=== PATIENT | female | born 1940 | race Caucasian/White ===

== ENCOUNTER → 2018-01-22 08:03 | Outpatient (CLI) | payer OTHER, SELFPAY ==
[2018-01-22 08:31] LABS: Add Manual Diff / Slide Review NO; Basophils Percent Auto 0.4 % (0-2); Eosinophils Percent Auto 0.1 % (2-4); Hematocrit 36.8 % (36-46); Hemoglobin 11.9 g/dL (12.0-16.0); Mean Corpuscular HGB Conc 32.3 % (30-36); Mean Corpuscular Hemoglobin 27.4 PG (26-34); Mean Corpuscular Volume 84.8 fL (80-100); Monocytes Percent Auto 3.4 % (3-14); Neutrophils Absolute Auto 10500 /uL (3000-5900); Neutrophils Percent Auto 74.1 % (50-75); Platelet Count 351 X10^3/uL (150-400); Red Blood Cell Count 4.34 X10^6/uL (4.0-5.2); Red Cell Distribution Width 16.2 % (11.6-14.8); White Blood Cell Count 14.1 X10^3/uL (4.5-11.0)
[2018-01-22 09:10] LABS: Alanine Aminotransferase 21 IU/L (9-52); Albumin 4.1 g/dL (3.5-5.0); Albumin Globulin Ratio 1.2 (1.0-2.8); Alkaline Phosphatase 54 U/L (38-126); Aspartate Aminotransferase 20 IU/L (14-36); BUN Creatinine Ratio 25.5 (6-22); Bilirubin Total 0.3 mg/dL (0.2-1.3); Creatinine Urine Random 97.7 mg/dL; Estimated Glomerular Filt Rate 48.2 mL/min (>60); Globulin 3.4 g/dL (1.7-4.1); Glucose 162 mg/dL (80-110); HEMOLYSIS < 15 (0-50); Potassium 4.1 mmol/L (3.4-5.1); Sodium 141 mmol/L (137-145); Total Protein 7.5 g/dL (6.3-8.2)
[2018-01-22 09:15] LABS: Microalbumi Creatinin Ratio Ur 25.5 ug/mg CR (<30); Microalbumin Urine Random 2.5 mg/dL (0-1.6)
[2018-01-23 07:42] LABS: HEMOLYSIS < 15 (0-50); Iron 92 ug/dL (37-170)
[2018-01-23 07:52] LABS: Percent Iron Saturation 27 % (15-50); Total Iron Binding Capacity 343 ug/mL (265-497); Transferrin 264 mg/dL (206-381)
[2018-01-23 08:18] LABS: Ferritin 11.9 ng/mL (11.1-264)
[2018-01-25 01:47] LABS: Hemoglobin A1C% w Est Avg Glu 6.4 % (4.0-6.0)
[2018-01-26 13:03] LABS: Parathyroid Hormone Int 34 pg/mL (14-64)
== END ==
PROVIDERS: Family Provider Family Medicine; PCP Family Medicine; Visit Provider Student in an Organized Health Care Education/Training Program
DX: E11.9 Type 2 diabetes mellitus without complications (principal); D50.9 Iron deficiency anemia, unspecified; N05.9 Unspecified nephritic syndrome with unspecified morphologic changes; D50.0 Iron deficiency anemia secondary to blood loss (chronic); D64.9 Anemia, unspecified; N25.81 Secondary hyperparathyroidism of renal origin; R80.9 Proteinuria, unspecified
CPT/HCPCS: 36415; 80053; 82043; 82570; 82728; 83036; 83540; 83550; 83970; 84443; 85025

== ENCOUNTER → 2018-07-12 09:26 | Outpatient (CLI) | payer OTHER, SELFPAY ==
[2018-07-12 10:11] LABS: Hematocrit 37.5 % (36-46); Hemoglobin 12.1 g/dL (12.0-16.0)
[2018-07-12 10:50] LABS: BUN Creatinine Ratio 13.3 (6-22); Blood Urea Nitrogen 16 mg/dL (7-17); Calcium 8.4 mg/dL (8.4-10.2); Carbon Dioxide 26 mmol/L (22-32); Chloride 101 mmol/L (98-107); Estimated Glomerular Filt Rate 43.6 mL/min (>60); Glucose 153 mg/dL (80-110); HEMOLYSIS < 15 (0-50); Potassium 3.9 mmol/L (3.4-5.1); Sodium 143 mmol/L (137-145)
[2018-07-12 10:53] LABS: HEMOLYSIS < 15 (0-50); Iron 29 ug/dL (37-170)
[2018-07-12 10:59] LABS: Creatinine Urine Random 181.9 mg/dL; Protein (Total) Urine Random 7 mg/dL (0-12); Protein Creatinine Ratio Urine 0.03 GRAM/24H
[2018-07-12 11:04] LABS: Percent Iron Saturation 11 % (15-50); Total Iron Binding Capacity 264 ug/dL (265-497); Transferrin 208 mg/dL (206-381)
[2018-07-12 11:15] LABS: Ferritin 26.8 ng/mL (11.1-264)
[2018-07-14 14:59] LABS: Parathyroid Hormone Int 28 pg/mL (14-64)
== END ==
PROVIDERS: Family Provider Family Medicine; PCP Family Medicine; Visit Provider Student in an Organized Health Care Education/Training Program
DX: N05.9 Unspecified nephritic syndrome with unspecified morphologic changes (principal); D50.0 Iron deficiency anemia secondary to blood loss (chronic); D64.9 Anemia, unspecified; N25.81 Secondary hyperparathyroidism of renal origin; R80.9 Proteinuria, unspecified
CPT/HCPCS: 36415; 80048; 82570; 82728; 83540; 83550; 83970; 84156; 85014; 85018

== ENCOUNTER → 2018-11-17 09:32 | Outpatient (CLI) | payer OTHER, SELFPAY | PROVIDERS: PCP Student in an Organized Health Care Education/Training Program; Visit Provider Student in an Organized Health Care Education/Training Program | DX: Z13.820 Encounter for screening for osteoporosis (principal); Z78.0 Asymptomatic menopausal state; E11.9 Type 2 diabetes mellitus without complications; Z91.89 Other specified personal risk factors, not elsewhere classified; Z87.891 Personal history of nicotine dependence | CPT/HCPCS: 77080 ==

== ENCOUNTER → 2018-12-30 08:18 | Outpatient (CLI) | payer OTHER, SELFPAY ==
[2018-12-30 08:55] LABS: Hematocrit 36.5 % (36-46); Hemoglobin 11.5 g/dL (12.0-16.0)
[2018-12-30 09:13] LABS: HEMOLYSIS < 15 (0-50)
[2018-12-30 09:22] LABS: BUN Creatinine Ratio 20.8 (6-22); Blood Urea Nitrogen 27 mg/dL (7-17); Calcium 8.1 mg/dL (8.4-10.2); Carbon Dioxide 29 mmol/L (22-32); Chloride 99 mmol/L (98-107); Estimated Glomerular Filt Rate 39.6 mL/min (>60); Glucose 140 mg/dL (80-110); Potassium 3.8 mmol/L (3.4-5.1); Sodium 141 mmol/L (137-145)
[2018-12-30 09:54] LABS: HEMOLYSIS < 15 (0-50); Iron 38 ug/dL (37-170)
[2018-12-30 09:57] LABS: Ferritin 21.5 ng/mL (11.1-264)
[2018-12-30 10:04] LABS: Percent Iron Saturation 12 % (15-50); Total Iron Binding Capacity 312 ug/dL (265-497); Transferrin 239 mg/dL (206-381)
[2018-12-30 10:05] LABS: Creatinine Urine Random 109.6 mg/dL
[2018-12-30 10:08] LABS: Protein (Total) Urine Random < 5 mg/dL (0-12); Protein Creatinine Ratio Urine 0.04 GRAM/24H
[2019-01-03 14:53] LABS: Parathyroid Hormone Int 41 pg/mL (14-64)
== END ==
PROVIDERS: PCP Student in an Organized Health Care Education/Training Program; Visit Provider Student in an Organized Health Care Education/Training Program
DX: R80.9 Proteinuria, unspecified (principal); N05.9 Unspecified nephritic syndrome with unspecified morphologic changes; D50.0 Iron deficiency anemia secondary to blood loss (chronic); D64.9 Anemia, unspecified; N25.81 Secondary hyperparathyroidism of renal origin
CPT/HCPCS: 36415; 80048; 82570; 82728; 83540; 83550; 83970; 84156; 85014; 85018

== ENCOUNTER → 2019-05-23 07:44 | Outpatient (CLI) | payer OTHER, SELFPAY ==
[2019-05-23 08:26] LABS: Hematocrit 36.4 % (36-46); Hemoglobin 11.6 g/dL (12.0-16.0); Mean Corpuscular HGB Conc 31.8 % (30-36); Mean Corpuscular Hemoglobin 27.8 PG (26-34); Mean Corpuscular Volume 87.5 fL (80-100); Platelet Count 357 X10^3/uL (150-400); Red Blood Cell Count 4.16 X10^6/uL (4.0-5.2); Red Cell Distribution Width 16.4 % (11.6-14.8); White Blood Cell Count 10.6 X10^3/uL (4.5-11.0)
[2019-05-23 08:42] LABS: HEMOLYSIS < 15 (0-50); Iron 42 ug/dL (37-170)
[2019-05-23 08:48] LABS: Hemoglobin A1C% w Est Avg Glu 5.9 % (4.0-6.0)
[2019-05-23 08:53] LABS: BUN Creatinine Ratio 16.7 (6-22); Blood Urea Nitrogen 20 mg/dL (7-17); Calcium 8.4 mg/dL (8.4-10.2); Carbon Dioxide 28 mmol/L (22-32); Chloride 102 mmol/L (98-107); Estimated Glomerular Filt Rate 43.4 mL/min (>60); Glucose 120 mg/dL (80-110); HEMOLYSIS < 15 (0-50); Percent Iron Saturation 13 % (15-50); Potassium 4.1 mmol/L (3.4-5.1); Sodium 143 mmol/L (137-145); Total Iron Binding Capacity 333 ug/dL (265-497); Transferrin 270 mg/dL (206-381)
== END ==
PROVIDERS: PCP Student in an Organized Health Care Education/Training Program; Visit Provider Student in an Organized Health Care Education/Training Program
DX: D50.9 Iron deficiency anemia, unspecified (principal); E11.9 Type 2 diabetes mellitus without complications
CPT/HCPCS: 36415; 80048; 83036; 83540; 83550; 85027

== ENCOUNTER → 2019-07-13 12:58 | Outpatient (CLI) | payer OTHER, SELFPAY ==
[2019-07-13 13:34] LABS: Hematocrit 35.7 % (36-46); Hemoglobin 11.5 g/dL (12.0-16.0)
[2019-07-13 14:23] LABS: BUN Creatinine Ratio 15.4 (6-22); Blood Urea Nitrogen 20 mg/dL (7-17); Calcium 8.2 mg/dL (8.4-10.2); Carbon Dioxide 28 mmol/L (22-32); Chloride 103 mmol/L (98-107); Estimated Glomerular Filt Rate 39.6 mL/min (>60); Glucose 161 mg/dL (80-110); HEMOLYSIS < 15 (0-50); Sodium 143 mmol/L (137-145)
[2019-07-13 15:55] LABS: Creatinine Urine Random 171.4 mg/dL; Protein (Total) Urine Random 9 mg/dL (0-12); Protein Creatinine Ratio Urine 0.05 GRAM/24H
[2019-07-15 15:09] LABS: Parathyroid Hormone Int 20 pg/mL (14-64)
== END ==
PROVIDERS: PCP Student in an Organized Health Care Education/Training Program; Visit Provider Student in an Organized Health Care Education/Training Program
DX: N05.9 Unspecified nephritic syndrome with unspecified morphologic changes (principal); R80.9 Proteinuria, unspecified; D64.9 Anemia, unspecified; N25.81 Secondary hyperparathyroidism of renal origin
CPT/HCPCS: 36415; 80048; 82570; 83970; 84156; 85014; 85018

== ENCOUNTER → 2019-07-13 13:51 | Outpatient (CLI) | payer OTHER, SELFPAY ==
--- NOTE | 2019-07-13 13:55 | DI.RAD.S_ITS ---
PROCEDURE: XR KNEE RT 1TO2V INDICATIONS: right Knee pain. Patellar mass TECHNIQUE: 3 views of the knee were acquired. COMPARISON: [facility] [place], CR, XR KNEE BILATERAL STANDING UP, 01/06/2017, 15:26. [facility], CR, KNEE 3V LEFT, 12/25/2016, 15:22. FINDINGS: Bones: No acute fractures or dislocations. Old patellar fracture with internal fixation. No suspicious bony lesions. Chondrocalcinosis. 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 Soft tissues: No joint effusion. No suspicious soft tissue calcifications. IMPRESSION: 1. Old patellar fracture with internal fixation. 2. Mild degenerative tendon sheath. 3. Chondrocalcinosis. Differential diagnoses include CPPD and hyperparathyroidism. Dictated by: Mackenzie Griffiths M.D. on 07/13/2019 at 15:38 Approved by: Mackenzie Griffiths M.D. on 07/13/2019 at 15:41
== END ==
PROVIDERS: PCP Student in an Organized Health Care Education/Training Program; Visit Provider Student in an Organized Health Care Education/Training Program
DX: M25.561 Pain in right knee (principal); M17.11 Unilateral primary osteoarthritis, right knee; M11.261 Other chondrocalcinosis, right knee
CPT/HCPCS: 73562

== ENCOUNTER → 2019-12-11 08:00 | Outpatient (CLI) | payer OTHER, SELFPAY ==
[2019-12-11 09:14] LABS: Hemoglobin 11.5 g/dL (12.0-16.0); Mean Corpuscular HGB Conc 31.9 % (30-36); Mean Corpuscular Volume 87.7 fL (80-100); Platelet Count 333 X10^3/uL (150-400); Red Blood Cell Count 4.11 X10^6/uL (4.0-5.2); Red Cell Distribution Width 15.4 % (11.6-14.8); White Blood Cell Count 10.5 X10^3/uL (4.5-11.0)
[2019-12-11 09:31] LABS: HEMOLYSIS < 15 (0-50); Iron 77 ug/dL (37-170)
[2019-12-11 09:33] LABS: BUN Creatinine Ratio 17.1 (6-22); Blood Urea Nitrogen 21 mg/dL (7-17); Calcium 8.6 mg/dL (8.4-10.2); Carbon Dioxide 29 mmol/L (22-32); Chloride 99 mmol/L (98-107); Estimated Glomerular Filt Rate 42.1 mL/min (>60); Glucose 135 mg/dL (80-110); HEMOLYSIS < 15 (0-50); Potassium 3.7 mmol/L (3.4-5.1); Sodium 139 mmol/L (137-145)
[2019-12-11 09:42] LABS: Hemoglobin A1C% w Est Avg Glu 6.8 % (4.0-6.0); Percent Iron Saturation 25 % (15-50); Total Iron Binding Capacity 304 ug/dL (265-497); Transferrin 250 mg/dL (206-381)
== END ==
PROVIDERS: PCP Student in an Organized Health Care Education/Training Program; Referring Provider Student in an Organized Health Care Education/Training Program; Visit Provider Student in an Organized Health Care Education/Training Program
DX: E11.9 Type 2 diabetes mellitus without complications (principal); E61.1 Iron deficiency
CPT/HCPCS: 36415; 80048; 83036; 83540; 83550; 85027

== ENCOUNTER → 2020-02-20 08:02 | Outpatient (CLI) | payer OTHER, SELFPAY ==
[2020-02-20 09:56] LABS: Hematocrit 37.2 % (36-46); Hemoglobin 11.9 g/dL (12.0-16.0)
[2020-02-20 10:11] LABS: BUN Creatinine Ratio 17.5 (6-22); Blood Urea Nitrogen 21 mg/dL (7-17); Calcium 8.3 mg/dL (8.4-10.2); Carbon Dioxide 27 mmol/L (22-32); Chloride 100 mmol/L (98-107); Estimated Glomerular Filt Rate 43.3 mL/min (>60); Glucose 181 mg/dL (80-110); HEMOLYSIS < 15 (0-50); Potassium 3.8 mmol/L (3.4-5.1); Sodium 139 mmol/L (137-145)
[2020-02-20 10:17] LABS: Creatinine Urine Random 183.9 mg/dL; Protein (Total) Urine Random 10 mg/dL (0-12); Protein Creatinine Ratio Urine 0.05 GRAM/24H
[2020-02-21 07:09] LABS: Parathyroid Hormone Int 23 pg/mL (15-65)
== END ==
PROVIDERS: PCP Student in an Organized Health Care Education/Training Program; Referring Provider Student in an Organized Health Care Education/Training Program; Visit Provider Student in an Organized Health Care Education/Training Program
DX: R80.9 Proteinuria, unspecified (principal); N05.9 Unspecified nephritic syndrome with unspecified morphologic changes; D64.9 Anemia, unspecified; N25.81 Secondary hyperparathyroidism of renal origin
CPT/HCPCS: 36415; 80048; 82570; 83970; 84156; 85014; 85018

== ENCOUNTER → 2020-07-18 10:07 | Outpatient (CLI) | payer OTHER, SELFPAY ==
[2020-07-18 10:53] LABS: Hematocrit 37.5 % (36-46); Mean Corpuscular Hemoglobin 27.8 PG (26-34); Mean Corpuscular Volume 86.9 fL (80-100); Platelet Count 324 X10^3/uL (150-400); Red Blood Cell Count 4.31 X10^6/uL (4.0-5.2); Red Cell Distribution Width 16.1 % (11.6-14.8); White Blood Cell Count 9.5 X10^3/uL (4.5-11.0)
[2020-07-18 11:12] LABS: BUN Creatinine Ratio 18.5 (6-22); Blood Urea Nitrogen 22 mg/dL (7-17); Estimated Glomerular Filt Rate 43.8 mL/min (>60)
[2020-07-18 11:19] LABS: Hemoglobin A1C% w Est Avg Glu 7.1 % (4.0-6.0)
[2020-07-18 12:00] LABS: Vitamin D 25 Hydroxy (D3) 68.5 ng/mL (30.0-100.0)
== END ==
PROVIDERS: PCP Student in an Organized Health Care Education/Training Program; Referring Provider Student in an Organized Health Care Education/Training Program; Visit Provider Student in an Organized Health Care Education/Training Program
DX: E11.9 Type 2 diabetes mellitus without complications (principal); I10 Essential (primary) hypertension; D64.9 Anemia, unspecified
CPT/HCPCS: 36415; 82306; 82565; 83036; 84520; 85027

== ENCOUNTER → 2020-09-20 08:04 | Outpatient (CLI) | payer MEDICARE, SELFPAY ==
[2020-09-20 09:09] LABS: Hematocrit 37.4 % (36-46); Hemoglobin 12.2 g/dL (12.0-16.0)
[2020-09-20 09:24] LABS: Blood Urea Nitrogen 19 mg/dL (7-17); Calcium 8.1 mg/dL (8.4-10.2); Carbon Dioxide 25 mmol/L (22-32); Chloride 103 mmol/L (98-107); Estimated Glomerular Filt Rate 46.8 mL/min (>60); Glucose 157 mg/dL (80-110); HEMOLYSIS < 15 (0-50); Potassium 4.2 mmol/L (3.4-5.1); Sodium 140 mmol/L (137-145)
[2020-09-20 10:39] LABS: Creatinine Urine Random 143.6 mg/dL; Protein (Total) Urine Random 19 mg/dL (0-12); Protein Creatinine Ratio Urine 0.13 GRAM/24H
[2020-09-21 05:32] LABS: Parathyroid Hormone Int 40 pg/mL (15-65)
== END ==
PROVIDERS: PCP Student in an Organized Health Care Education/Training Program; Referring Provider Student in an Organized Health Care Education/Training Program; Visit Provider Student in an Organized Health Care Education/Training Program
DX: R80.9 Proteinuria, unspecified (principal); N05.9 Unspecified nephritic syndrome with unspecified morphologic changes; D64.9 Anemia, unspecified; N25.81 Secondary hyperparathyroidism of renal origin
CPT/HCPCS: 36415; 80048; 82570; 83970; 84156; 85014; 85018

== ENCOUNTER → 2020-09-24 08:24 | Outpatient (CLI) | payer MEDICARE, SELFPAY ==
[2020-09-24] MEDS: COVID-19 VACC #1, MRNA(MOD) 100 MCG/0.5 ML VIAL IM (08:30)
== END ==
PROVIDERS: PCP Student in an Organized Health Care Education/Training Program; Visit Provider Internal Medicine
DX: Z23 Encounter for immunization (principal)
CPT/HCPCS: 0011A; 91301

== ENCOUNTER → 2020-10-22 08:28 | Outpatient (CLI) | payer MEDICARE, SELFPAY ==
[2020-10-22] MEDS: COVID-19 VACC #2, MRNA(MOD) 100 MCG/0.5 ML VIAL IM (08:32)
== END ==
PROVIDERS: PCP Student in an Organized Health Care Education/Training Program; Visit Provider Internal Medicine
DX: Z23 Encounter for immunization (principal)
CPT/HCPCS: 0012A; 91301

== ENCOUNTER → 2021-02-06 10:06 | Outpatient (CLI) | payer MEDICARE, SELFPAY ==
[2021-02-06 10:36] LABS: Hemoglobin A1C% w Est Avg Glu 6.3 % (4.0-6.0)
[2021-02-06 10:56] LABS: BUN Creatinine Ratio 17.3 (6-22); Blood Urea Nitrogen 19 mg/dL (7-17); Estimated Glomerular Filt Rate 47.8 mL/min (>60)
== END ==
PROVIDERS: PCP Student in an Organized Health Care Education/Training Program; Referring Provider Student in an Organized Health Care Education/Training Program; Visit Provider Student in an Organized Health Care Education/Training Program
DX: E11.9 Type 2 diabetes mellitus without complications (principal); I10 Essential (primary) hypertension; N18.30 Chronic kidney disease, stage 3 unspecified
CPT/HCPCS: 36415; 82565; 83036; 84520

== ENCOUNTER → 2021-04-30 07:57 | Outpatient (CLI) | payer MEDICARE, SELFPAY ==
[2021-04-30 08:40] LABS: Hematocrit 38.1 % (36-46); Hemoglobin 12.2 g/dL (12.0-16.0)
[2021-04-30 09:18] LABS: Creatinine Urine Random 111.4 mg/dL; Protein (Total) Urine Random 5 mg/dL (0-12); Protein Creatinine Ratio Urine 0.04 GRAM/24H
[2021-04-30 09:19] LABS: BUN Creatinine Ratio 19.7 (6-22); Blood Urea Nitrogen 24 mg/dL (7-17); Calcium 8.9 mg/dL (8.4-10.2); Carbon Dioxide 26 mmol/L (22-32); Chloride 104 mmol/L (98-107); Estimated Glomerular Filt Rate 42.4 mL/min (>60); Glucose 156 mg/dL (80-110); HEMOLYSIS < 15 (0-50); Sodium 143 mmol/L (137-145)
[2021-05-01 07:10] LABS: Parathyroid Hormone Int 35 pg/mL (15-65)
== END ==
PROVIDERS: PCP Student in an Organized Health Care Education/Training Program; Referring Provider Student in an Organized Health Care Education/Training Program; Visit Provider Student in an Organized Health Care Education/Training Program
DX: N05.9 Unspecified nephritic syndrome with unspecified morphologic changes (principal); D64.9 Anemia, unspecified; N25.81 Secondary hyperparathyroidism of renal origin; R80.9 Proteinuria, unspecified
CPT/HCPCS: 36415; 80048; 82570; 83970; 84156; 85014; 85018

== ENCOUNTER → 2021-11-28 10:00 | Outpatient (CLI) | payer MEDICARE, SELFPAY ==
[2021-11-28 11:48] LABS: Hematocrit 38.5 % (36-46); Hemoglobin 12.5 g/dL (12.0-16.0)
[2021-11-28 12:02] LABS: Blood Urea Nitrogen 23 mg/dL (7-17); Calcium 8.5 mg/dL (8.4-10.2); Carbon Dioxide 27 mmol/L (22-32); Chloride 103 mmol/L (98-107); Estimated Glomerular Filt Rate 45.3 mL/min (>60); Glucose 187 mg/dL (80-110); HEMOLYSIS < 15 (0-50); Potassium 3.9 mmol/L (3.4-5.1); Sodium 141 mmol/L (137-145)
[2021-11-28 16:06] LABS: Creatinine Urine Random 105.7 mg/dL
[2021-11-28 16:37] LABS: Protein (Total) Urine Random < 5 mg/dL (0-12); Protein Creatinine Ratio Urine 0.04 GRAM/24H
[2021-11-29 05:52] LABS: Parathyroid Hormone Int 31 pg/mL (15-65)
== END ==
PROVIDERS: PCP Student in an Organized Health Care Education/Training Program; Referring Provider Student in an Organized Health Care Education/Training Program; Visit Provider Student in an Organized Health Care Education/Training Program
DX: N05.9 Unspecified nephritic syndrome with unspecified morphologic changes (principal); R80.9 Proteinuria, unspecified; D64.9 Anemia, unspecified; N25.81 Secondary hyperparathyroidism of renal origin
CPT/HCPCS: 36415; 80048; 82570; 83970; 84156; 85014; 85018

== ENCOUNTER → 2021-12-16 07:43 | Outpatient (CLI) | payer MEDICARE, SELFPAY ==
[2021-12-16 08:21] LABS: Hemoglobin A1C% w Est Avg Glu 7.6 % (4.0-6.0)
== END ==
PROVIDERS: PCP Student in an Organized Health Care Education/Training Program; Referring Provider Student in an Organized Health Care Education/Training Program; Visit Provider Student in an Organized Health Care Education/Training Program
DX: E11.9 Type 2 diabetes mellitus without complications (principal)
CPT/HCPCS: 36415; 83036

== ENCOUNTER → 2021-12-26 10:09 | Outpatient (CLI) | payer MEDICARE, SELFPAY | PROVIDERS: PCP Student in an Organized Health Care Education/Training Program; Referring Provider Student in an Organized Health Care Education/Training Program; Visit Provider Student in an Organized Health Care Education/Training Program | DX: Z13.820 Encounter for screening for osteoporosis (principal); Z78.0 Asymptomatic menopausal state | CPT/HCPCS: 77080 ==

== ENCOUNTER → 2022-03-06 07:45 | Outpatient (CLI) | payer MEDICARE, SELFPAY ==
[2022-03-06 08:13] LABS: Hemoglobin A1C% w Est Avg Glu 6.8 % (4.0-6.0)
[2022-03-06 08:16] LABS: Cholesterol 143 mg/dL (140-199); HDL Cholesterol 43 mg/dL (40-60); LDL Cholesterol Calculated 57 mg/dL (<100); Triglycerides 213 mg/dL (35-150)
== END ==
PROVIDERS: PCP Student in an Organized Health Care Education/Training Program; Referring Provider Student in an Organized Health Care Education/Training Program; Visit Provider Student in an Organized Health Care Education/Training Program
DX: E11.22 Type 2 diabetes mellitus with diabetic chronic kidney disease (principal); E11.69 Type 2 diabetes mellitus with other specified complication; E78.5 Hyperlipidemia, unspecified; N18.30 Chronic kidney disease, stage 3 unspecified
CPT/HCPCS: 36415; 80061; 83036

== ENCOUNTER → 2022-06-26 07:32 | Outpatient (CLI) | payer MEDICARE, SELFPAY ==
[2022-06-26 09:44] LABS: Hematocrit 37.7 % (36-46); Hemoglobin 12.3 g/dL (12.0-16.0)
[2022-06-26 10:32] LABS: BUN Creatinine Ratio 19.3 (6-22); Blood Urea Nitrogen 22 mg/dL (7-17); Calcium 8.2 mg/dL (8.4-10.2); Carbon Dioxide 25 mmol/L (22-32); Chloride 103 mmol/L (98-107); Estimated Glomerular Filt Rate 48 mL/min (>60); Glucose 136 mg/dL (80-110); HEMOLYSIS < 15 (0-50); Potassium 3.9 mmol/L (3.4-5.1); Sodium 141 mmol/L (137-145)
[2022-06-26 12:00] LABS: Creatinine Urine Random 102.5 mg/dL; Protein (Total) Urine Random 5 mg/dL (0-12); Protein Creatinine Ratio Urine 0.04 GRAM/24H
[2022-06-27 05:56] LABS: Parathyroid Hormone Int 32 pg/mL (15-65)
== END ==
PROVIDERS: PCP Student in an Organized Health Care Education/Training Program; Referring Provider Student in an Organized Health Care Education/Training Program; Visit Provider Student in an Organized Health Care Education/Training Program
DX: N05.9 Unspecified nephritic syndrome with unspecified morphologic changes (principal); D64.9 Anemia, unspecified; N25.81 Secondary hyperparathyroidism of renal origin; R80.9 Proteinuria, unspecified
CPT/HCPCS: 36415; 80048; 82570; 83970; 84156; 85014; 85018

== ENCOUNTER → 2022-09-09 11:27 | Outpatient (CLI) | payer MEDICARE, SELFPAY ==
[2022-09-09 13:35] LABS: Hemoglobin A1C% w Est Avg Glu 6.4 % (4.0-6.0)
== END ==
PROVIDERS: PCP Student in an Organized Health Care Education/Training Program; Referring Provider Student in an Organized Health Care Education/Training Program; Visit Provider Student in an Organized Health Care Education/Training Program
DX: E11.22 Type 2 diabetes mellitus with diabetic chronic kidney disease (principal); N18.30 Chronic kidney disease, stage 3 unspecified
CPT/HCPCS: 36415; 83036

== ENCOUNTER → 2023-01-26 07:34 | Outpatient (CLI) | payer MEDICARE, SELFPAY ==
[2023-01-26 08:38] LABS: Hematocrit 37.1 % (36-46); Hemoglobin 12.1 g/dL (12.0-16.0)
[2023-01-26 09:15] LABS: Creatinine Urine Random 96.6 mg/dL
[2023-01-26 09:16] LABS: Protein (Total) Urine Random < 5 mg/dL (0-12)
[2023-01-26 09:17] LABS: BUN Creatinine Ratio 17.3 (6-22); Blood Urea Nitrogen 22 mg/dL (7-17); Calcium 8.3 mg/dL (8.4-10.2); Carbon Dioxide 29 mmol/L (22-32); Chloride 101 mmol/L (98-107); Estimated Glomerular Filt Rate 42 mL/min (>60); Glucose 149 mg/dL (80-110); HEMOLYSIS < 15 (0-50); Potassium 4.2 mmol/L (3.4-5.1); Protein Creatinine Ratio Urine < 0.05 GRAM/24H; Sodium 139 mmol/L (137-145)
[2023-01-28 08:13] LABS: Parathyroid Hormone Int 43 pg/mL (15-65)
== END ==
PROVIDERS: PCP Student in an Organized Health Care Education/Training Program; Referring Provider Student in an Organized Health Care Education/Training Program; Visit Provider Student in an Organized Health Care Education/Training Program
DX: N05.9 Unspecified nephritic syndrome with unspecified morphologic changes (principal); R80.9 Proteinuria, unspecified; D64.9 Anemia, unspecified; N25.81 Secondary hyperparathyroidism of renal origin
CPT/HCPCS: 36415; 80048; 82570; 83970; 84156; 85014; 85018

== ENCOUNTER → 2023-02-25 06:53 | Outpatient (CLI) | payer MEDICARE, SELFPAY ==
[2023-02-25 08:41] LABS: Add Manual Diff / Slide Review NO; Basophils Absolute Auto 0 /uL (0-100); Basophils Percent Auto 0.5 % (0-2); Eosinophils Absolute Auto 400 /uL (0-450); Eosinophils Percent Auto 4.2 % (2-4); Hematocrit 37.3 % (36-46); Hemoglobin 12.3 g/dL (12.0-16.0); Lymphocytes Absolute Auto 3300 /uL (1100-4500); Lymphocytes Percent Auto 38.5 % (25-40); Mean Corpuscular HGB Conc 33.1 % (30-36); Mean Corpuscular Hemoglobin 29.4 PG (26-34); Mean Corpuscular Volume 88.8 fL (80-100); Monocytes Absolute Auto 500 /uL (0-900); Monocytes Percent Auto 6.3 % (3-14); Neutrophils Absolute Auto 4400 /uL (1500-7000); Neutrophils Percent Auto 50.5 % (50-75); Platelet Count 327 X10^3/uL (150-400); Red Cell Distribution Width 14.7 % (11.6-14.8); White Blood Cell Count 8.7 X10^3/uL (4.5-11.0)
[2023-02-25 08:52] LABS: Cholesterol 143 mg/dL (140-199); HDL Cholesterol 36 mg/dL (40-60); LDL Cholesterol Calculated 58 mg/dL (<100); Triglycerides 245 mg/dL (35-150)
[2023-02-25 09:06] LABS: HEMOLYSIS < 15 (0-50); Iron 52 ug/dL (37-170)
[2023-02-25 09:17] LABS: Percent Iron Saturation 16 % (15-50); Total Iron Binding Capacity 335 ug/dL (265-497); Transferrin 242 mg/dL (206-381)
[2023-02-26 05:54] LABS: Labcorp Hemoglobin (Hb) A1c 6.8 % (4.8-5.6)
== END ==
PROVIDERS: Student in an Organized Health Care Education/Training Program; PCP Pediatrics; Referring Provider Pediatrics; Visit Provider Pediatrics
DX: E11.69 Type 2 diabetes mellitus with other specified complication (principal); E78.5 Hyperlipidemia, unspecified; N18.30 Chronic kidney disease, stage 3 unspecified; D64.9 Anemia, unspecified
CPT/HCPCS: 36415; 80061; 83036; 83540; 83550; 85025

== ENCOUNTER → 2023-10-22 11:41 | Outpatient (CLI) | payer MEDICARE, SELFPAY ==
[2023-10-22 12:18] LABS: Creatinine Urine Random 72.3 mg/dL; Protein (Total) Urine Random 6 mg/dL (0-12); Protein Creatinine Ratio Urine 0.08 GRAM/24H
[2023-10-22 12:49] LABS: Blood Urea Nitrogen 23 mg/dL (7-17); Calcium 7.8 mg/dL (8.4-10.2); Carbon Dioxide 27 mmol/L (22-32); Chloride 101 mmol/L (98-107); Estimated Glomerular Filt Rate 47 mL/min (>60); Glucose 146 mg/dL (80-110); HEMOLYSIS < 15 (0-50); Potassium 3.8 mmol/L (3.4-5.1); Sodium 140 mmol/L (137-145)
[2023-10-22 13:05] LABS: Hematocrit 31.5 % (36-46)
[2023-10-23 14:19] LABS: Parathyroid Hormone Int 43 pg/mL (15-65)
== END ==
PROVIDERS: PCP Family Medicine; Referring Provider Student in an Organized Health Care Education/Training Program; Visit Provider Student in an Organized Health Care Education/Training Program
DX: N05.9 Unspecified nephritic syndrome with unspecified morphologic changes (principal); D70.9 Neutropenia, unspecified; D63.1 Anemia in chronic kidney disease; N25.81 Secondary hyperparathyroidism of renal origin; R80.9 Proteinuria, unspecified
CPT/HCPCS: 36415; 80048; 82570; 83970; 84156; 85014; 85018

== ENCOUNTER 2023-10-27 14:11 | Emergency (ER) | payer MEDICARE, SELFPAY ==
[2023-10-27] VITALS (13 sets, daily range): BP systolic 161–185; BP diastolic 72–93; PULSE 67–77; RESP 14–24; TEMP 37; O2SAT 92–97; BMI 39.5
--- NOTE | 2023-10-27 14:35 | DI.RAD.S_ITS ---
PROCEDURE: XR CHEST 1V INDICATIONS: generalized weakness TECHNIQUE: One view of the chest was acquired. COMPARISON: None. FINDINGS: Surgical changes and devices: None. Lungs and pleura: Mild reticulonodular pulmonary opacity. No pleural effusions or pneumothorax. Mediastinum: Mediastinal contours appear normal. Heart size is normal. Bones and chest wall: No suspicious bony lesions. Overlying soft tissues appear unremarkable. IMPRESSION: Mild atypical pneumonia. Dictated by: Edis Jenkins M.D. on 10/27/2023 at 15:55 Approved by: Edis Jenkins M.D. on 10/27/2023 at 15:56
[2023-10-27 15:55] LABS: Add Manual Diff / Slide Review NO; Basophils Absolute Auto 0 /uL (0-100); Basophils Percent Auto 0.6 % (0-2); Eosinophils Absolute Auto 0 /uL (0-450); Eosinophils Percent Auto 0.6 % (2-4); Hematocrit 31.1 % (36-46); Hemoglobin 9.9 g/dL (12.0-16.0); Lymphocytes Absolute Auto 2100 /uL (1100-4500); Lymphocytes Percent Auto 23.9 % (25-40); Mean Corpuscular HGB Conc 31.8 % (30-36); Mean Corpuscular Volume 78.6 fL (80-100); Monocytes Absolute Auto 600 /uL (0-900); Monocytes Percent Auto 7.4 % (3-14); Neutrophils Absolute Auto 5800 /uL (1500-7000); Neutrophils Percent Auto 67.5 % (50-75); Platelet Count 303 X10^3/uL (150-400); Red Blood Cell Count 3.95 X10^6/uL (4.0-5.2); Red Cell Distribution Width 15.7 % (11.6-14.8); White Blood Cell Count 8.6 X10^3/uL (4.5-11.0)
[2023-10-27 16:02] LABS: INR 1.1 (0.9-1.3); Prothrombin Time 13.1 SECONDS (9.4-12.5)
[2023-10-27 16:11] LABS: Alanine Aminotransferase 27 IU/L (<35); Alkaline Phosphatase 55 U/L (38-126); Aspartate Aminotransferase 60 IU/L (14-36); BUN Creatinine Ratio 24.8 (6-22); Bilirubin Total 0.5 mg/dL (0.2-1.3); Blood Urea Nitrogen 36 mg/dL (7-17); Calcium 7.6 mg/dL (8.4-10.2); Carbon Dioxide 38 mmol/L (22-32); Chloride 100 mmol/L (98-107); Estimated Glomerular Filt Rate 36 mL/min (>60); Globulin 3.9 g/dL (1.7-4.1); Glucose 87 mg/dL (80-110); HEMOLYSIS < 15 (0-50); Potassium 3.7 mmol/L (3.4-5.1); Sodium 137 mmol/L (137-145); Total Protein 7.9 g/dL (6.3-8.2)
[2023-10-27 16:21] LABS: NT-proBNP (BNP-Adult 18+) 269 pg/mL (<450)
[2023-10-27 16:22] LABS: Troponin I < 0.012 ng/mL (0.01-0.034)
[2023-10-27 16:27] LABS: Procalcitonin 0.81 ng/mL (<0.5)
[2023-10-27 16:36] LABS: Influenza A - CEPHEID Flu A POSITIVE (NEGATIVE); Influenza B - CEPHEID Flu B NEGATIVE (NEGATIVE); Respiratory Syncytial Virus Negative (Negative)
[2023-10-27 16:41] LABS: COVID-19 CEPHEID 4-PLEX PCR Negative (Negative)
--- NOTE | 2023-10-27 18:36 | ED_ITS ---
HPI - General Adult General Chief complaint: Weakness Stated complaint: weakness, loss of appetite Time Seen by Provider: 10/27/23 17:44 Source: patient Mode of arrival: Wheelchair Limitations: no limitations History of Present Illness HPI narrative: Patient is a 83-year-old female who is here for evaluation of proximally 5 days of cough, runny nose, weakness, fatigue, loss of appetite, food not tasting well. No shortness of breath. She states she has not been eating and drinking as much because it just does not taste very good. Some nausea but no vomiting. No change in bowel habits. No rashes. No recent travel. Related Data Home Medications Medication Instructions Recorded Confirmed cetirizine 5 mg tablet 5 mg PO QDAY ##0 03/09/13 09/20/23 calcium carbonate 500 mg calcium 1 tab PO ##0 07/13/17 09/20/23 (1,250 mg) tablet mecobalamin (vitamin B12) 1,000 1,000 mcg sublingual DAILY 01/19/18 09/20/23 mcg disintegrating tablet,sublingual Resmed Aircurve 10 BIPAP #1 ea 01/12/19 09/20/23 aspirin 81 mg tablet,delayed 81 mg PO DAILY 05/25/19 09/20/23 release potassium chloride 20 mEq 20 meq PO DAILY 07/18/20 09/20/23 tablet,extended release lancets (Accu-Chek Softclix #100 ea 09/20/23 09/20/23 Lancets) Previous Rx's Medication Instructions Recorded blood-glucose meter #1 ea 01/12/22 triamcinolone acetonide 0.1 % 1 applic topical BID #80 grams 04/06/22 topical cream omeprazole 20 mg capsule,delayed 20 mg PO DAILY #90 caps 12/29/22 release blood sugar diagnostic (Blood #100 ea 02/04/23 Glucose Test strips) lancets 31 gauge #100 ea 02/04/23 albuterol sulfate 90 mcg/actuation 2 puff inhalation QID PRN 03/04/23 aerosol inhaler shortness of breath or wheezing #8.5 grams azithromycin 250 mg tablet See Rx Instructions PO .COMPLEX #6 03/04/23 tabs atorvastatin 20 mg tablet 20 mg PO DAILY #90 tabs 03/26/23 hydrochlorothiazide 25 mg tablet 25 mg PO QDAY #90 tabs 03/26/23 oxybutynin chloride 5 mg 5 mg PO DAILY #90 tabs 03/26/23 tablet,extended release 24 hr glipizide 2.5 mg tablet, extended 2.5 mg PO DAILY #90 tabs 09/13/23 release 24 hr Allergies Allergy/AdvReac Type Severity Reaction Status Date / Time adhesive tape Allergy Mild Rash Verified 09/20/23 08:52 cefaclor [CEFACLOR] Allergy Unknown HIVES Verified 09/20/23 08:52 codeine [CODEINE] Allergy Unknown EMESIS Verified 09/20/23 08:52 naproxen [NAPROXEN] Allergy Unknown HIVES Verified 09/20/23 08:52 clams Allergy emesis Verified 09/20/23 08:52 Review of Systems Constitutional Constitutional: Reports system reviewed and no additional complaints, except as documented ENT Ears, Nose, Mouth, and Throat: Reports system reviewed and no additional complaints, except as documented Cardiovascular Cardiovascular: Reports system reviewed and no additional complaints, except as documented Respiratory Respiratory: Reports system reviewed and no additional complaints, except as documented Gastrointestinal Gastrointestinal: Reports system reviewed and no additional complaints, except as documented Genitourinary Genitourinary: Reports system reviewed and no additional complaints, except as documented Integumentary/Breasts Skin/Breast: Reports system reviewed and no additional complaints, except as documented Neurologic Neurologic: Reports system reviewed and no additional complaints, except as documented Patient History Medical History Cough Allergies Obesity (BMI 30-39.9) (~03/19/21) Morbid obesity with body mass index (BMI) of 40.0 to 49.9 (Unknown) Obstructive sleep apnea Chronic renal failure, stage 3 (moderate) Anemia Hypertension Diabetes mellitus GERD (gastroesophageal reflux disease) Urinary incontinence Patellar fracture Surgical History Hx of knee surgery Hx of shoulder surgery Status post arthroscopy (1987) Status post appendectomy Family History Brother Colon cancer Mother No problems noted. Father No problems noted. Social History marital status: details: lives in [place] lives independently: Yes caregiver/support person: Yes (children live nearby) Smoking Status: Former smoker Smoking Status: Former smoker Alcohol type: other Substance Use Type: marijuana Exam Initial Vital Signs Initial Vital Signs: Vital Signs Temperature 98.6 F 10/27/23 14:18 Pulse Rate 71 10/27/23 14:18 Respiratory Rate 24 10/27/23 14:18 Blood Pressure 163/72 H 10/27/23 14:18 Pulse Oximetry 92 10/27/23 14:18 Oxygen Delivery Method Room Air 10/27/23 14:18 Const General: cooperative, comfortable and No ill appearing HENMT Head: normal to inspection and normocephalic Resp Effort & Inspection: normal respiratory effort Auscultation: clear to auscultation bilaterally Cardio Rate: regular rate Rhythm: regular rhythm Skin General: no rashes or lesions noted Neuro General: patient alert, patient awake and patient oriented x3 Course Orders Ordered: ED Orders 10/27/23 14:29 Covid-19 + FLU A/B + RSV - PCR Stat 10/27/23 14:35 XR chest 1V Stat EKG-12 Lead Stat 10/27/23 15:43 Complete Blood Count AUTO DIFF Stat Comprehensive Metabolic Panel Stat Lactate (Lactic Acid) Stat Procalcitonin Stat Prothrombin Time INR Stat Troponin I Stat 10/27/23 15:51 BNP [NT-proBNP (BNP-Adult 18+)] Stat Vital Signs Vital signs: Vital Signs - 8 hr 10/27/23 17:43 10/27/23 17:43 10/27/23 18:00 Pulse Rate 77 74 Respiratory Rate 23 22 Blood Pressure 185/87 H Pulse Oximetry 97 97 Oxygen Delivery Method 10/27/23 18:01 10/27/23 18:01 10/27/23 18:30 Pulse Rate 71 Respiratory Rate 23 Blood Pressure 165/84 H 176/80 H Pulse Oximetry 96 Oxygen Delivery Method 10/27/23 18:30 Pulse Rate 75 Respiratory Rate 20 Blood Pressure Pulse Oximetry 97 Oxygen Delivery Method Room Air Medical Decision Making Lab Data Lab results reviewed: Yes I reviewed the patient's lab results. 10/27/23 15:43 10/27/23 15:43 Labs: Lab Results 10/27/23 10/27/23 10/27/23 Range/Units 14:29 15:43 15:51 WBC 8.6 (4.5-11.0) X10^3/uL RBC 3.95 L (4.0-5.2) X10^6/uL Hgb 9.9 L (12.0-16.0) g/dL Hct 31.1 L (36-46) % MCV 78.6 L (80-100) fL MCH 25.0 L (26-34) PG MCHC 31.8 (30-36) % RDW 15.7 H (11.6-14.8) % Plt Count 303 (150-400) X10^3/uL Neut % (Auto) 67.5 (50-75) % Lymph % (Auto) 23.9 L (25-40) % [facility] % (Auto) 7.4 (3-14) % Eos % (Auto) 0.6 L (2-4) % Baso % (Auto) 0.6 (0-2) % Neut # (Auto) 5800 (7495-0466) /uL Lymph # (Auto) 2100 (9229-6143) /uL [facility] # (Auto) 600 (0-900) /uL Eos # (Auto) 0 (0-450) /uL Baso # (Auto) 0 (0-100) /uL PT 13.1 H (9.4-12.5) SECONDS INR 1.1 (0.9-1.3) Sodium 137 (137-145) mmol/L Potassium 3.7 (3.4-5.1) mmol/L Chloride 100 (98-107) mmol/L Carbon Dioxide 38 H (22-32) mmol/L BUN 36 H (7-17) mg/dL Creatinine 1.45 H (0.52-1.04) mg/dL Estimated GFR 36 L (>60) mL/min BUN/Creatinine Ratio 24.8 H (6-22) Glucose 87 (80-110) mg/dL Lactate 1.0 (0.7-2.1) mmol/L Calcium 7.6 L (8.4-10.2) mg/dL Total Bilirubin 0.5 (0.2-1.3) mg/dL AST 60 H (14-36) IU/L ALT 27 (<35) IU/L Alkaline Phosphatase 55 (38-126) U/L Troponin I < 0.012 (0.01-0.034) ng/mL NT-Pro-B Natriuret Pep 269 (<450) pg/mL Total Protein 7.9 (6.3-8.2) g/dL Albumin 4.0 (3.5-5.0) g/dL Globulin 3.9 (1.7-4.1) g/dL Albumin/Globulin Ratio 1.0 (1.0-2.8) Procalcitonin 0.81 H (<0.5) ng/mL SARS-CoV-2 (PCR) Negative (Negative) Influenza A (RT-PCR) Flu a positive H (NEGATIVE) Influenza B (RT-PCR) Flu b negative (NEGATIVE) RSV (PCR) Negative (Negative) Imaging Data Chest x-ray: Radiologist's Impression: PROCEDURE: XR CHEST 1V INDICATIONS: generalized weakness TECHNIQUE: One view of the chest was acquired. COMPARISON: None. FINDINGS: Surgical changes and devices: None. Lungs and pleura: Mild reticulonodular pulmonary opacity. No pleural effusions or pneumothorax. Mediastinum: Mediastinal contours appear normal. Heart size is normal. Bones and chest wall: No suspicious bony lesions. Overlying soft tissues appear unremarkable. IMPRESSION: Mild atypical pneumonia. ECG Data Attestation: I personally reviewed and interpreted this ECG as follows: Interpretation: Sinus rhythm Ventricular rate is 69 First-degree AV block Normal axis Normal QTC No ST T wave changes MDM Narrative Medical decision making narrative: Patient has been having symptoms for the past 4 days. Not hypoxic. Lungs are clear. She is influenza A positive which does explain her presenting symptoms. Because she has had symptoms for this. Of time we will hold on Tamiflu. There was no indication for antibiotics. No indication for admission to the hospital. She was given return precautions. She expressed understanding and agreement with plan. Discharge Plan Departure Patient Disposition: Home Clinical Impression: Influenza A Instructions: DI for Influenza -- Adult Activity Restrictions/Additional Instructions: Continue to take all of your medications as directed. Be sure that you were increasing your fluid intake. You can take Tylenol for any fevers or body aches. Return to the emergency department for new symptoms. Prescriptions: No Action cetirizine 5 MG tablet 5 mg PO QDAY Qty: 0 calcium carbonate 500 MG tablet 1 tab PO Qty: 0 (DME) blood-glucose meter Misc See Rx Instructions .Route Qty: 1 0RF Rx Instructions: Use as directed to check blood sugars 1-2x daily. triamcinolone acetonide 0.1 % cream 1 applic Topical BID Qty: 80 2RF omeprazole 20 mg capsule,delayed release(DR/EC) 20 mg PO DAILY Qty: 90 3RF (DME) lancets 31 gauge misc See Rx Instructions .Route Qty: 100 6RF Rx Instructions: Use as directed to check blood sugars 1-2x a day or as directed (DME) Blood Glucose Test Strip See Rx Instructions .Route Qty: 100 6RF Rx Instructions: Use to check blood sugars 1-2x a day or as directed by PCP oxybutynin chloride 5 mg tablet extended release 24hr 5 mg PO DAILY Qty: 90 3RF hydrochlorothiazide 25 mg tablet 25 mg PO QDAY Qty: 90 3RF atorvastatin 20 mg tablet 20 mg PO DAILY Qty: 90 3RF glipizide 2.5 mg tablet extended release 24hr 2.5 mg PO DAILY Qty: 90 0RF Rx Instructions: Patient will need to be seen in clinic before next renewal. 06/08/23 aspirin 81 mg tablet,delayed release (DR/EC) 81 mg PO DAILY azithromycin 250 mg tablet See Rx Instructions PO .COMPLEX Qty: 6 0RF Rx Instructions: For 250 mg dose pack: take 500 mg today (day 1), then 250 mg for 4 days (days 2-5) by mouth albuterol sulfate 90 mcg/actuation HFA aerosol inhaler 2 puff inhalation QID PRN (Reason: shortness of breath or wheezing) Qty: 8.5 3RF (DME) lancets [Accu-Chek Softclix Lancets] Misc See Rx Instructions .ROUTE .MEDSUPPLY Qty: 100 Patient Comments: [NO ORIGINAL SIG] Rx Instructions: As directed mecobalamin (vitamin B12) 1,000 mcg tablet,disintegrating 1,000 mcg SL DAILY potassium chloride 20 mEq tablet extended release 20 meq PO DAILY (DME) Resmed Aircurve 10 BIPAP Qty: 1 Dose Instruction: As directed Patient Comments: Pressure: IPAP 14 EPAP 6 DME: [facility] Rx Instructions: As directed Referrals: Annette Hutchison DO [Primary Care Provider] - Stand Alone Forms: Patient Portal/API
== END 2023-10-27 18:50 | disposition home or self-care (01) ==
PROVIDERS: Emergency Medicine; Emergency Provider Emergency Medicine; PCP Family Medicine
DX: J10.1 Influenza due to other identified influenza virus with other respiratory manifestations (principal); Z87.891 Personal history of nicotine dependence
CPT/HCPCS: 0241U; 71045; 80053; 83605; 83880; 84145; 84484; 85025; 85610; 93005; 99283; 99284

== ENCOUNTER → 2024-06-06 07:22 | Outpatient (CLI) | payer MEDICARE, SELFPAY ==
[2024-06-06 08:41] LABS: Hematocrit 27.8 % (36-46); Hemoglobin 8.5 g/dL (12.0-16.0)
[2024-06-06 09:13] LABS: BUN Creatinine Ratio 15.6 (6-22); Blood Urea Nitrogen 20 mg/dL (7-17); Calcium 8.5 mg/dL (8.4-10.2); Carbon Dioxide 21 mmol/L (22-32); Chloride 103 mmol/L (98-107); Estimated Glomerular Filt Rate 42 mL/min (>60); Glucose 141 mg/dL (80-110); HEMOLYSIS < 15 (0-50); Potassium 4.2 mmol/L (3.4-5.1); Sodium 138 mmol/L (137-145)
[2024-06-06 09:28] LABS: Creatinine Urine Random 46.24 mg/dL; Protein (Total) Urine Random 7 mg/dL (0-12); Protein Creatinine Ratio Urine 0.15 GRAM/24H
[2024-06-07 08:15] LABS: Parathyroid Hormone Int 29 pg/mL (15-65)
== END ==
LOC: LAB 07:24
PROVIDERS: PCP Family Medicine; Referring Provider Student in an Organized Health Care Education/Training Program; Visit Provider Student in an Organized Health Care Education/Training Program
DX: D70.9 Neutropenia, unspecified (principal); N05.9 Unspecified nephritic syndrome with unspecified morphologic changes; D63.1 Anemia in chronic kidney disease; R80.9 Proteinuria, unspecified; N25.81 Secondary hyperparathyroidism of renal origin
CPT/HCPCS: 36415; 80048; 82570; 83970; 84156; 85014; 85018

== ENCOUNTER → 2024-08-02 09:03 | Outpatient (CLI) | payer MEDICARE, SELFPAY ==
[2024-08-02 10:24] LABS: Hematocrit 34.4 % (36-46); Hemoglobin 10.7 g/dL (12.0-16.0)
[2024-08-02 10:39] LABS: HEMOLYSIS < 15 (0-50); Iron 66 ug/dL (37-170)
[2024-08-02 10:44] LABS: Calcium 8.7 mg/dL (8.4-10.2); Carbon Dioxide 25 mmol/L (22-32); Chloride 104 mmol/L (98-107); Glucose 157 mg/dL (80-110); HEMOLYSIS < 15 (0-50); Potassium 4.4 mmol/L (3.4-5.1); Sodium 139 mmol/L (137-145)
[2024-08-02 10:48] LABS: BUN Creatinine Ratio 16.8 (6-22); Blood Urea Nitrogen 22 mg/dL (7-17); Estimated Glomerular Filt Rate 40 mL/min (>60)
[2024-08-02 10:49] LABS: Percent Iron Saturation 25 % (15-50); Total Iron Binding Capacity 269 ug/dL (265-497); Transferrin 244 mg/dL (206-381)
[2024-08-02 11:00] LABS: Creatinine Urine Random 111.97 mg/dL
[2024-08-02 11:05] LABS: Microalbumin Urine Random 1.2 mg/dL (0-1.6)
[2024-08-02 11:14] LABS: Ferritin 9 ng/mL (11-264)
[2024-08-02 11:29] LABS: Vitamin B12 > 1000 pg/mL (239-931)
== END ==
PROVIDERS: PCP Family Medicine; Referring Provider Student in an Organized Health Care Education/Training Program; Visit Provider Student in an Organized Health Care Education/Training Program
DX: D50.0 Iron deficiency anemia secondary to blood loss (chronic) (principal); N05.9 Unspecified nephritic syndrome with unspecified morphologic changes; D70.9 Neutropenia, unspecified; E66.9 Obesity, unspecified; G47.33 Obstructive sleep apnea (adult) (pediatric); E11.69 Type 2 diabetes mellitus with other specified complication; E78.5 Hyperlipidemia, unspecified; N18.30 Chronic kidney disease, stage 3 unspecified; E53.8 Deficiency of other specified B group vitamins; I12.9 Hypertensive chronic kidney disease with stage 1 through stage 4 chronic kidney disease, or unspecified chronic kidney disease
CPT/HCPCS: 36415; 80048; 82043; 82570; 82607; 82728; 83540; 83550; 85014; 85018

== ENCOUNTER → 2025-02-23 07:34 | Outpatient (CLI) | payer MEDICARE, SELFPAY ==
[2025-02-23 08:11] LABS: Hematocrit 34.1 % (36-46); Hemoglobin 11.1 g/dL (12.0-16.0)
[2025-02-23 08:41] LABS: HEMOLYSIS < 15 (0-50); Iron 60 ug/dL (37-170)
[2025-02-23 08:44] LABS: Cholesterol 127 mg/dL (140-199); HDL Cholesterol 47 mg/dL (40-60); LDL Cholesterol Calculated 52 mg/dL (<100); Triglycerides 138 mg/dL (35-150)
[2025-02-23 08:46] LABS: BUN Creatinine Ratio 18.5 (6-22); Blood Urea Nitrogen 25 mg/dL (7-17); Calcium 8.3 mg/dL (8.4-10.2); Carbon Dioxide 25 mmol/L (22-32); Chloride 103 mmol/L (98-107); Estimated Glomerular Filt Rate 39 mL/min (>60); Glucose 136 mg/dL (70-99); HEMOLYSIS < 15 (0-50); Potassium 4.3 mmol/L (3.4-5.1); Sodium 139 mmol/L (137-145)
[2025-02-23 08:52] LABS: Percent Iron Saturation 17 % (15-50); Total Iron Binding Capacity 358 ug/dL (265-497); Transferrin 296 mg/dL (206-381)
[2025-02-23 09:16] LABS: Ferritin 9 ng/mL (11-264)
[2025-02-23 11:32] LABS: Creatinine Urine Random 111.74 mg/dL
[2025-02-23 11:37] LABS: Microalbumin Urine Random 0.8 mg/dL (0-1.6)
== END ==
LOC: LAB 07:37
PROVIDERS: PCP Family Medicine; Referring Provider Student in an Organized Health Care Education/Training Program; Visit Provider Student in an Organized Health Care Education/Training Program
DX: D50.0 Iron deficiency anemia secondary to blood loss (chronic) (principal); E66.9 Obesity, unspecified; E78.5 Hyperlipidemia, unspecified; D70.9 Neutropenia, unspecified; G47.33 Obstructive sleep apnea (adult) (pediatric); I10 Essential (primary) hypertension; N05.9 Unspecified nephritic syndrome with unspecified morphologic changes; E11.22 Type 2 diabetes mellitus with diabetic chronic kidney disease; E11.69 Type 2 diabetes mellitus with other specified complication; N18.30 Chronic kidney disease, stage 3 unspecified; D63.1 Anemia in chronic kidney disease; E53.8 Deficiency of other specified B group vitamins
CPT/HCPCS: 36415; 80048; 80061; 82043; 82570; 82728; 83540; 83550; 83970; 85014; 85018